=== PATIENT | female | born 1965 | race African-American/Black ===

== ENCOUNTER 2017-08-01 14:12 | Emergency (ER) | payer BC ==
[~2017-08-01] VITALS: Ht 170.2 cm; Wt 109.8 kg
[2017-08-01] MEDS ORDERED: NORVASC10 MG PO (14:47)
[2017-08-01] MEDS ORDERED: NORTRIPTYLINE H50 M3 PO (14:48)
[2017-08-01] MEDS ORDERED: ASPIRIN325 PO (14:48)
[2017-08-01] MEDS ORDERED: UNICOMPLEX M TA1 TA1 PO (14:48)
[2017-08-01] MEDS ORDERED: HYDROCHLOROTHIA25 M2 PO (14:48)
[2017-08-01] MEDS ORDERED: BUTALB-APAP-CA1 EACH PO (14:49)
[2017-08-01] MEDS ORDERED: FLEXERIL PO (16:08)
[2017-08-01 16:15] VITALS: BP 108/40
== END 2017-08-01 16:15 | disposition home or self-care (01) ==
LOC: M.ERS 14:12
DX: S39.012A Strain of muscle, fascia and tendon of lower back, initial encounter (principal); X50.0XXA Overexertion from strenuous movement or load, initial encounter; Y93.89 Activity, other specified; Y92.238 Other place in hospital as the place of occurrence of the external cause; Y99.0 Civilian activity done for income or pay